=== PATIENT | male | born 1975 | race Caucasian/White ===

== ENCOUNTER 2017-07-02 02:01 | Emergency (ER) | payer MEDICAID ==
[~2017-07-02] VITALS: Ht 193 cm; Wt 80.2 kg
[~2017-07-02 02:01] MED LIST: IBUP-1573 PO
[2017-07-02 02:06] VITALS: BP 137/93
== END 2017-07-02 03:20 | disposition home or self-care (01) ==
LOC: ER 02:01
DX: Z00.8 Encounter for other general examination (principal); F12.10 Cannabis abuse, uncomplicated; Z59.0 Homelessness
CPT/HCPCS: 99281